=== PATIENT | male | born 1960 | race Caucasian/White ===

== ENCOUNTER 2017-04-04 16:01 | Emergency (ER) | payer BC, OTHER ==
[~2017-04-04] VITALS: Ht 190.5 cm; Wt 99.8 kg
--- NOTE | ~2017-04-04 | EKG ---
[address] [address] [facility] [place] [address] ELECTROCARDIOGRAM REPORT Name: MICHELE GLEASON Room #: DEP [facility]ITAL[facility] [id number] Admission: 04/04/17 Attend Phys: Discharge: 04/04/17 Date of : 60 Report #: [id number] THIS REPORT FOR: //name// 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
--- NOTE | ~2017-04-04 | EKG ---
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 : 1960 Requested By: Argentina Cantu Order Number: [id number] MD: Glenn Manriquez Measurements Intervals [place] Rate: 77 P: 97 [place]: 90 QRS: 49 QRSD: 98 T: 8 QT: 396 QTc: 449 Interpretive Statements Sinus rhythm Short OR interval RSR' in V1 or V2, right VCD Compared to ECG 08/06/2011 09:01:05 sinus rhythm has replaced supraventricular tachycardia Electronically Signed On 04-05-2017 7:47:54 CDT by Glenn Manriquez [email or web address] <ELECTRONICALLY SIGNED> By: Glenn Manriquez MD, [facility] 04/05/17 0747 45 45 Glenn Manriquez MD, [facility] /EPI
[~2017-04-04 16:01] MED LIST: ANALGESIC325 MG PO; ASPIRIN EC325 M1 PO; ASPIRIN EC81 M1 PO; ASPIRIN81 M2 PO; CARDIZEM PO; COUMADIN7.5 MG PO; CYCLOBENZAPRINE10 MG PO; DILTIAZEM ER240 M1 PO; FLECAINIDE ACE100 MG PO; FLEXERIL PO; HYDROCODON-ACE1 EAC7 PO; HYDROCODONE-AP1 EAC6 PO; LISINOPRIL20 MG PO; LOVENOX SQ; MELOXICAM7.5 MG PO; MOBIC7.5 M1 PO; PRADAXA150 MG PO; PRADAXA75 MG PO; TEGRETOL XR200 MG PO; TRAMADOL 50 MG50 MG PO; ULTRAM 50MG TAB50 MG PO; ZOCOR 20 MG TAB20 M1 PO
[2017-04-04] MEDS ORDERED: PROPAFENONE 15150 MG PO (16:39)
[2017-04-04] MEDS ORDERED: EDARBI80 MG PO (16:41)
[2017-04-04 16:50] LABS: ABSOLUTE NEUTROPHILS 3.8 thou/uL (1.4-8.2); BASOPHILS 0.8 % (0.0-2.0); EOSINOPHILS 2.2 % (0.0-3.0); HEMATOCRIT 41.5 % (42.0-52.0); HEMOGLOBIN 13.8 gm/dL (14.0-18.0); LYMPHOCYTES 35.1 % (24.0-44.0); MCH 27.5 pg (26.0-34.0); MCHC 33.2 g/dL (28.0-37.0); MCV 82.7 fL (80.0-100.0); MONOCYTES 11.2 % (1.0-8.0); PLATELET COUNT 321 thou/uL (150-400); POLYS 50.7 % (36.0-66.0); RBC 5.02 mil/uL (4.50-6.00); RDW 14.5 % (10.5-14.5); WBC 7.5 thou/uL (4.0-11.0)
[2017-04-04 16:54] LABS: MANUAL DIFF NO
[2017-04-04 16:58] LABS: ANION GAP 6 mmol/L (7-16); BUN 22 mg/dL (7-18); CALCIUM 8.3 mg/dL (8.5-10.1); CHLORIDE 105 mmol/L (98-107); CO2 27 mmol/L (21-32); CREATININE 1.2 mg/dL (0.7-1.3); GLUCOSE 102 mg/dL (74-106); POTASSIUM 4.1 mmol/L (3.5-5.1); SODIUM 138 mmol/L (136-145)
[2017-04-04 17:07] LABS: TROPONIN-I < 0.04 ng/mL (<0.04-0.07)
== END 2017-04-04 17:17 | disposition home or self-care (01) ==
LOC: ER 16:01
PROVIDERS: Emergency Medicine
DX: I48.0 Paroxysmal atrial fibrillation (principal); R00.2 Palpitations; R00.0 Tachycardia, unspecified; I10 Essential (primary) hypertension

== ENCOUNTER → 2017-04-08 | Outpatient (CLI) | payer BC, OTHER ==
[~2017-04-08] MED LIST changes: +EDARBI80 MG PO; +PROPAFENONE 15150 MG PO
== END ==
LOC: SLEEPLAB 16:01
DX: G47.33 Obstructive sleep apnea (adult) (pediatric) (principal)

== ENCOUNTER → 2017-05-24 | Outpatient (CLI) | payer OTHER | LOC: ULTRA 08:14 | DX: R10.11 Right upper quadrant pain (principal) ==

== ENCOUNTER 2017-08-29 04:40 | Inpatient (IN) | payer OTHER ==
[~2017-08-29] VITALS: Ht 193 cm; Wt 102.1 kg
--- NOTE | ~2017-08-29 | EKG ---
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1960 Requested By: Eran Padilla Order Number: [id number] MD: Glenn Manriquez Measurements Intervals [place] Rate: 160 P: 0 [place]: 67 QRS: 60 QRSD: 95 T: -19 QT: 300 QTc: 490 Interpretive Statements Supraventricular tachycardia, possibly atypical atrial flutter Nonspecific ST and T wave abnormality Compared to ECG 04/04/2017 16:46:24 PSVT has replaced sinus rhythm Electronically Signed On 08-29-2017 9:13:32 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
[2017-08-29 05:03] LABS: HEMATOCRIT 43.6 % (42.0-52.0); HEMOGLOBIN 14.8 gm/dL (14.0-18.0); MCH 28.1 pg (26.0-34.0); MCHC 33.8 g/dL (28.0-37.0); MCV 83.1 fL (80.0-100.0); RBC 5.25 mil/uL (4.50-6.00); RDW 14.6 % (10.5-14.5); WBC 10.3 thou/uL (4.0-11.0)
[2017-08-29 05:11] LABS: CALCIUM 8.8 mg/dL (8.5-10.1); CREATININE 1.2 mg/dL (0.7-1.3); POTASSIUM 3.5 mmol/L (3.5-5.1)
[2017-08-29 06:48] VITALS: BP 118/81
[2017-08-29 08:00] VITALS: BP 115/60
[2017-08-29] MEDS ORDERED: PROPAFENONE 22225 M1 PO ×2 (08:47→09:30)
[2017-08-29] MEDS ORDERED: CARDIZEM CD240 MG PO ×2 (08:47→09:30)
[2017-08-29] MEDS ORDERED: EDARBYCLOR 40-1 EAC1 PO ×2 (08:47→09:30)
[2017-08-29] MEDS ORDERED: ASPIRIN EC325 M1 PO (09:30)
[2017-08-29 09:50] VITALS: BP 118/81
[2017-08-29 10:45] VITALS: BP 118/81
== END 2017-08-29 10:35 | disposition home or self-care (01) | DRG 310 ==
LOC: ER 04:40 → 2N 06:52
PROVIDERS: Emergency Medicine
DX: I48.4 Atypical atrial flutter (principal); I10 Essential (primary) hypertension; G40.909 Epilepsy, unspecified, not intractable, without status epilepticus; E78.5 Hyperlipidemia, unspecified; G89.29 Other chronic pain; M54.9 Dorsalgia, unspecified; E03.9 Hypothyroidism, unspecified; M48.00 Spinal stenosis, site unspecified; I48.0 Paroxysmal atrial fibrillation
CPT/HCPCS: 10081

== ENCOUNTER → 2020-02-19 | Outpatient (CLI) | payer OTHER | LOC: SJCVCIMAG 09:07 | DX: I48.0 Paroxysmal atrial fibrillation (principal); I51.89 Other ill-defined heart diseases; I10 Essential (primary) hypertension; E78.5 Hyperlipidemia, unspecified; I47.1 Supraventricular tachycardia ==

== ENCOUNTER → 2021-03-13 | Outpatient (CLI) | payer OTHER ==
[~2021-03-13] VITALS: Ht 193 cm; Wt 105.4 kg
[~2021-03-13] MED LIST changes: +CARDIZEM CD240 MG PO; +CHLORTHALIDONE25 MG PO; +EDARBI40 MG PO; +EDARBYCLOR 40-1 EAC1 PO; +KLOR-CON M2020 MEQ PO; +MAGNESIUM250 M1 PO; +PROPAFENONE 22225 M1 PO; +REPATHA SU140 MG/1 M SUBQ; +VITAMIN B-121000 MC2 SUBLING
[2021-03-13 07:00] VITALS: BP 126/81
--- NOTE | 2021-03-13 10:05 | TEE ---
[facility] [place] [address] TRANSESOPHAGEAL ECHOCARDIOGRAM Name: MICHELE GLEASON Room #: REG VONNIE Jauregui#: [id number] Admission: 03/13/21 Attend Phys: Glenn Manriquez MD, Discharge: Date of : 60 Report #: [id number] THIS REPORT FOR: cc: Eris Meza MD, Terry A. MD Lundgren, Craig H. MD [facility] ~ APPROVED REPORT Study performed: 03/13/2021 07:38:53 EXAM: Transesophageal Echocardiogram Patient Location: Out-Patient Status: routine BSA: 2.33 HR: 83 bpm BP: 128/83 mmHg Rhythm: NSR Other Information Study Quality: Good Indications Assess LV. Hx: Afib/ablation Echo Enhancing Agent Indication: Endocardial border delineation and rule out shunt Agent(s) / Amount(s) Used: Agitated Saline 7 cc Optison 4 cc Procedure After obtaining informed consent, patient underwent transesophageal echo in the [facility]. Type of Sedation : Conscious Sedation Sedation was administered by Laura Tam RN. Sedation was achieved intravenously with: Versed (5.5) Fentanyl (100) Transesophageal probe was inserted and advanced into esophagus without difficulty by Glenn Manriquez MD. Throughout the procedure, the blood pressure, pulse oximetry, cardiac rhythm, and rate were monitored. The patient tolerated the procedure without adverse effects. Recovery from conscious sedation was uneventful and vital signs were stable. [facility] [address] [place] [address] TRANSESOPHAGEAL ECHOCARDIOGRAM Name: MICHELE GLEASON Room #: REG CL [facility].#: [id number] Admission: 03/13/21 Attend Phys: Glenn Manriquez, Discharge: Date of : 60 Report #: [id number] Left Ventricle The left ventricle is normal size. There is normal LV segmental wall motion. There is normal left ventricular wall thickness. Left ventricular systolic function is normal. 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 Right Ventricle The right ventricle is normal size. The right ventricular systolic function is normal. Atria The left atrium size is normal. No thrombus is visualized in the left atrium or appendage. No shunting by contrast bubble injection The right atrium size is normal. No shunting noted with contrast bubble injection. Aortic Valve The aortic valve is normal in structure. No aortic regurgitation is present. There is no aortic valvular stenosis. Mitral Valve The mitral valve is normal in structure. Trace mitral regurgitation. No evidence of mitral valve stenosis. Tricuspid Valve The tricuspid valve is normal in structure. There is no tricuspid valve regurgitation noted. Pulmonic Valve The pulmonary valve is normal in structure. There is no pulmonic valvular regurgitation. Great Vessels The aortic root is normal in size. The ascending aorta is normal in size. IVC is normal in size and collapses >50% with inspiration. Pericardium There is no pericardial effusion. <Conclusion> Left ventricular systolic function is normal. 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 LVEF is 60-65%. No thrombus in the left atrium or appendage. No shunting by contrast bubble injection The aortic valve is normal in structure. No aortic regurgitation or stenosis The mitral valve is normal in structure. Trace mitral regurgitation. The ascending aorta is normal in size. There is no pericardial effusion. <ELECTRONICALLY SIGNED> By: Glenn Manriquez MD, FACC 03/13/21 1004 100 Glenn Manriquez MD, FACC /INF
== END | disposition home or self-care (01) ==
LOC: CATH 06:27
PROVIDERS: ATTEND Internal Medicine
DX: I48.91 Unspecified atrial fibrillation (principal); I34.9 Nonrheumatic mitral valve disorder, unspecified; I42.4 Endocardial fibroelastosis; I10 Essential (primary) hypertension; E78.5 Hyperlipidemia, unspecified; Z98.890 Other specified postprocedural states; Z79.899 Other long term (current) drug therapy; Z79.01 Long term (current) use of anticoagulants